=== PATIENT | male | born 1955 ===

== ENCOUNTER 2018-06-20 09:16 | Emergency (ER) | payer SELFPAY ==
[2018-06-20 09:29] VITALS: BP 145/70; PULSE 97; RESP 18; TEMP 97.8; O2SAT 67
--- NOTE | 2018-06-20 10:01 | C.PDOC ---
History Of Present Illness 63 year old male, with history of BPH, comes in to ED complaining of generalized itchiness that started 4 days ago. Patient states it is worse at night but otherwise he denies open wound, chest pain, or SOB. States he had similar symptoms several months back and was given an ointment by Dr. Mahoney; however, this time the ointment is not working. Patient is a construction sales representative and has been using a new chemical to wash but he claims that he had the symptoms before using the chemical. Time Seen by Provider: 06/20/18 09:41 Chief Complaint (Nursing): Allergic Reaction History Per: Patient History/Exam Limitations: no limitations Onset/Duration Of Symptoms: Days Current Symptoms Are (Timing): Still Present Past Medical History Reviewed: Historical Data, Nursing Documentation, Vital Signs Vital Signs: Last Vital Signs Temp 97.8 F 06/20/18 09:24 Pulse 97 H 06/20/18 09:24 Resp 18 06/20/18 09:24 BP 145/70 06/20/18 09:24 Pulse Ox 67 L 06/20/18 09:24 - Medical History PMH: Kidney Stones, Pneumothorax - [facility] Procedures CYSTOSCOPY NEC (05/08/14) URETERAL CATHETERIZATION (05/08/14) Family History: States: No Known Family Hx - Social History Hx Tobacco Use: No Hx Alcohol Use: No Hx Substance Use: No - Immunization History Hx Tetanus Toxoid Vaccination: Yes Hx Influenza Vaccination: No Hx Pneumococcal Vaccination: No Review Of Systems Except As Marked, All Systems Reviewed And Found Negative. Constitutional: Negative for: Fever Cardiovascular: Negative for: Chest Pain Respiratory: Negative for: Shortness of Breath Skin: Positive for: Other (Generalized itchiness; no open wounds) Physical Exam - Physical Exam Appears: Non-toxic, No Acute Distress Skin: Warm, Dry, No Rash (maculopapular rash), Other (mild erythema on lower extremities) Head: Atraumatic, Normacephalic Eye(s): bilateral: Normal Inspection, PERRL, EOMI Ear(s): Bilateral: Normal Oral Mucosa: Moist Throat: Normal, No Erythema, No Exudate, Other (Airway is patent; uvula midline) Chest: Symmetrical Cardiovascular: Rhythm Regular, No Murmur Respiratory: Normal Breath Sounds, No Rales, No Rhonchi, No Stridor, No Wheezing Gastrointestinal/Abdominal: Soft, No Tenderness Extremity: No Tenderness, No Pedal Edema Extremity: Bilateral: Normal ROM Neurological/Psych: Oriented x3, Normal Speech Gait: Steady ED Course And Treatment O2 Sat by Pulse Oximetry: 67 Medical Decision Making Medical Decision Making: Impression: Allergic reaction Plan: --Decadron IM --Benadryl 25 mg PO --Pepcid 20 mg PO Patient was instructed to follow up with his PMD in 1-2 days for further evaluation and to return to ER if symptoms persist. Disposition - Disposition Referrals: [facility] at [facility] [Outside] Disposition: HOME/ ROUTINE Disposition Time: 10:00 Condition: GOOD Prescriptions: DiphenhydrAMINE [Benadryl] 25 mg PO Q6 #20 cap Famotidine [Pepcid] 40 mg PO DAILY #10 tablet Instructions: Skin Rash Forms: [employer] (Yakut) - Clinical Impression Clinical Impression: Skin rash - Scribe Statement The provider has reviewed the documentation as recorded by the Bartolome Servin Provider Attestation: All medical record entries made by the Bartolome were at my direction and personally dictated by me. I have reviewed the chart and agree that the record accurately reflects my personal performance of the history, physical exam, medical decision making, and the department course for this patient. I have also personally directed, reviewed, and agree with the discharge instructions and disposition.
[2018-06-20] MEDS ORDERED: Dexamethasone 10 MG in Sodium Chloride 0.9% 50 ML IM ONE (10:03)
== END 2018-06-20 10:18 | disposition home or self-care (01) ==
LOC: C.ER 09:16
DX: R21 Rash and other nonspecific skin eruption (principal)
CPT/HCPCS: 96372; 99283; J1100